=== PATIENT | female | born 1985 | race Hispanic/Latino ===

== ENCOUNTER 2017-12-22 00:07 | Inpatient (IN) | payer BC, OTHER, SELFPAY ==
[2017-12-22] MEDS ORDERED: Ringers Lactate 1,000 ML IV PRN (00:27)
[2017-12-22] MEDS ORDERED: MIDAZOLAM HCL 2 MG/2 ML INJ IV PRN (00:27)
[2017-12-22] MEDS ORDERED: CARBOPROST TROME 250 MCG/ML IM PRN (00:27)
[2017-12-22] MEDS ORDERED: BUTORPHANOL 1 MG/ML INJ IV PRN (00:27)
[2017-12-22] MEDS ORDERED: PROMETHAZINE 25 MG/ML VIAL IM PRN (00:27)
[2017-12-22] MEDS ORDERED: METHYLERGONOVINE 0.2MG/ML AMP IM PRN (00:27)
[2017-12-22] MEDS ORDERED: MEPERIDINE HCL 25 MG/0.5 ML IV PRN (00:27)
[2017-12-22 00:43] LABS: RPR Titer ND
[2017-12-22 00:49] LABS: Absolute Lymphocytes (CBC) 2.7 K/uL (0.7-4.9); Absolute Monocytes 0.7 K/uL (0.1-1.3); Absolute Neutrophil 4.9 K/uL (1.8-8.0); Basophils % 0.3 % (0-1.3); Eosinophils % 0.9 % (0-4.4); Hematocrit 38.7 % (36.0-45.0); Lymphocytes % 32.3 % (15.3-44.8); MCV 90.2 fL (80-100); Monocytes % 7.8 % (3.3-12.3); RBC Red Blood Cell Count 4.29 M/uL (3.86-4.86)
[2017-12-22] MEDS ORDERED: METHYLERGONOVINE 0.2MG/ML AMP IM ONE (00:50)
[2017-12-22] MEDS ORDERED: OXYTOCIN/LR 0 UNIT/0 ML BAG IV ONE (00:50)
[2017-12-22] MEDS ORDERED: MEPERIDINE HCL 25 MG/0.5 ML ONE (00:50)
[2017-12-22] MEDS ORDERED: LIDOCAINE 2% INJ, 20 mL 20 ML ONE (00:50)
[2017-12-22] MEDS ORDERED: OXYTOCIN/LR 20 UNIT/1,000 ML BAG IV ONE (00:51)
[2017-12-22] MEDS ORDERED: Rho(D) IG (HUMAN) 300 MCG SYR IM PRN (00:54)
[2017-12-22] MEDS ORDERED: Oxycodone HCl/Acetaminophen 1 TAB TAB PO PRN ×4 (00:54→05:07)
[2017-12-22] MEDS ORDERED: DOCUSATE NA/SENNA CONC 1 TAB PO PRN ×2 (00:54→05:07)
[2017-12-22] MEDS ORDERED: ACETAMINOPHEN 500 MG TAB PO PRN ×2 (00:54→05:07)
[2017-12-22] MEDS ORDERED: BISACODYL 10 MG RECTAL SUPP RECT PRN ×2 (00:54→05:07)
[2017-12-22] MEDS ORDERED: DIPHENHYDRAMINE 25 MG TAB/CAP PO PRN ×2 (00:54→05:07)
[2017-12-22] MEDS ORDERED: Ringers Lactate 1,000 ML IV SCH (01:00)
[2017-12-22] MEDS ORDERED: OXYTOCIN/LR 20 UNIT/1,000 ML BAG IV SCH ×3 (01:00→06:00)
--- NOTE | 2017-12-22 01:26 | PREOPHP ---
Date of Admission: 12/22/2017 History Of Present Illness: A 32-year-old, 3, para 2, 38-39 weeks, patient omer Millan wed in ET in [place] without apparent complications. Says she went to labor and delivery to be assessed in [place], they send her home. She came straight here. She is noted to be 8 cm and bearing down w hen she came in, and went rapidly to complete. Family History: Noncontributory. Allergies: NO ALLERGIES. THE PATIENT GIVES A HISTORY. SHE IS RH NEGATIVE AND SHE HAD HER RHOGAM DURING THE . BETA S TREP IS NOT AVAILABLE. Physical Examination: Unremarkable. Vital signs: Are all stable. Heart and lungs: Grossly clear. Plan: She has a term size uterus and is complete and on the perineum. GLORIA/ROLDAN Voice ID: [id number]
--- NOTE | 2017-12-22 01:26 | OP ---
Surgeon: Miguel Wolf MD A 32-year-old 3, para 2, followed by Dr. Mckeon, antepartum, was assessed in Labor and Delive ry in [place], sent home, came straight here to 8 cm, with urge to push when she came in, went to co mplete rapidly. Spontaneous rupture of membranes showed clear fluid. Second stage of 5 minutes or l ess. Spontaneous vaginal delivery of an estimated 8 pounds plus male . Apgars 9 and 9 for a s mall first degree laceration on the left labia minora, infiltrated with the local anesthetic and runn ing locked stitch with 4 stitches. A small first degree at the posterior fourchette. The running lo ck stitches there are also after the local infiltration. The patient was also given IV medications a fter delivery of the baby, clamping the cord. Cash delivery of placenta, which was inspected and noted to be intact and normal. Blood loss of 300 cc or less. Tolerated all procedures well. Final Diagnoses: 1.Term intrauterine . 2.Vaginal delivery. GLORIA/ROLDAN Voice ID: [id number] Report ID: [id number]
[2017-12-22 01:41] VITALS: BMI 30.9
[2017-12-22] MEDS ORDERED: IBUPROFEN 200 MG TAB PO PRN (05:07)
--- NOTE | 2017-12-22 11:49 | PN ---
Since delivery, the patient is doing quite well. Lochia is normal. We went over today a RhoGAM, gabriela baptiste the patient will get since the baby is Rh positive, also one of her Tdap, which apparently the pat ient has not had nor has been discussed. I discuss this for her and evolved all family members 21 ye ars or more. We will observe the patient today, send her home tomorrow. Full instructions given. Galina be will go over it again tomorrow. GLORIA/ROLDAN Voice ID: [id number] Report ID: [id number]
[2017-12-22] MEDS: IBUPROFEN 200 MG TAB PO PRN ×2 (12:28→20:10)
[2017-12-22] MEDS ORDERED: IBUPROFEN 200 MG TAB PO ONE (20:26)
[2017-12-22 23:11] LABS: RPR (Rapid Plasma Reagin) NON-REACT (NON-REACT)
--- NOTE | 2017-12-23 08:27 | DS ---
A 32-year-old multiparous female, patient of Dr. Mckeon seen in [place] for labor, dismiss came over here was 8 cm on admission. Subsequently delivered an 8 pounds 9 ounce male infant, Apgars 9 and 9. Small first-degree lacerations on either labia minora, sutured with 2-0 chromic running locked stit ches. Schultze delivery of the placenta. A routine blood loss of 300 cc. Approximately post afebrile, ambulating. Voiding lochia is normal. She is Rh negative and received RhoGAM. Tdap admi nistration suggested. The patient is dismissed. She will call back to Dr. Mckeon's office for [facility] er instructions to report any temperature elevation of 100 degrees or greater, severe pain, heavy ble eding, or any other type of abnormalities. Dismissed with tramadol for analgesia. Final Diagnoses: 1.Term intrauterine 38 weeks 6 days. 2.Vaginal delivery. RhoGAM administered, Tdap offered. GLORIA/ROLDAN Voice ID: [id number] Report ID: [id number]
[2017-12-23] MEDS ORDERED: Tdap (Diph,Pertuss(Acell),Tet Vac) 0.5 ML SYR IMVAC ONE (08:48)
[2017-12-23 09:10] VITALS: BP 115/70; TEMP 97
[2017-12-24 20:29] LABS: HBsAG Nonreactive (Nonreactive)
== END 2017-12-23 10:10 | disposition home or self-care (01) | DRG 775 ==
LOC: L&D 00:07 → 2ND-WC 00:17
PROVIDERS: ADMIT Specialist; ATTEND Specialist
PROC: 3E0234Z Introduction of Serum, Toxoid and Vaccine into Muscle, Percutaneous Approach (ICD-10-PCS; principal; 2017-12-22)
PROC: 10E0XZZ Delivery of Products of Conception, External Approach (ICD-10-PCS; 2017-12-22)
PROC: 0HQ9XZZ Repair Perineum Skin, External Approach (ICD-10-PCS; 2017-12-22)
DX: O70.0 First degree perineal laceration during delivery (principal); Z3A.38 38 weeks gestation of pregnancy; Z37.0 Single live birth; Z23 Encounter for immunization
CPT/HCPCS: 36415; 85025; 85461; 86592; 86850; 86870; 86901; 87340; 90715; J0595; J2175; J2210; J2590; J2790

== ENCOUNTER 2018-01-03 00:18 | Emergency (ER) | payer BC, SELFPAY ==
--- NOTE | 2018-01-03 01:10 | ER ---
Nurse's Notes [facility] Name: Jo Ann Cuadra Age: 32 yrs Sex: Female : 1985 Arrival Date: 01/03/2018 Time: 00:22 Bed 13 Private MD: Diagnosis: Nipple discharge;Cracked nipple associated with Presentation: 01/03 00:31 Presenting complaint: Patient states: that she has been breast feeding x 2 weeks since her child was born and now her nipples are cut and bleeding. More on the left. She is now is so much pain she is having trouble breast feeding. Transition of care: patient was not received from another setting of care. Onset of symptoms was January 02, 2018. Care prior to arrival: None. 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 - Social history:: Smoking status: Patient/guardian denies using tobacco. Screenin:20 Abuse screen: Denies threats or abuse. Nutritional screening: No deficits noted. kb1 Tuberculosis screening: No symptoms or risk factors identified. Fall Risk None identified. Assessment: 01:20 General: Appears in no apparent distress. Behavior is calm, cooperative. Pain: Denies kb1 pain. Neuro: Level of Consciousness is awake, alert, obeys commands. Cardiovascular: Patient's skin is warm and dry. Cardiovascular: No deficits noted. Respiratory: Airway is patent. Vital Signs: 00:33 BP 118 / 78; Pulse 67; Resp 18; Temp 97.0(TE); Pulse Ox 100% on R/A; Height 5 ft. 4 in. fc (162.56 cm) (R); Pain 10/10; 00:39 Weight 75.3 kg; fc 00:39 Body Mass Index 28.49 (75.30 kg, 162.56 cm) ED Course: 00:22 Patient arrived in ED. al2 00:33 Triage completed. 00:34 Arm band placed on Patient placed in an exam room, on a stretcher. 00:38 Braden Deng MD is Attending Physician. tw4 00:58 Lyric López, RN is Primary Nurse. kb1 01:20 Patient has correct armband on for positive identification. Bed in low position. Call kb1 light in reach. 01:27 No provider procedures requiring assistance completed. Patient did not have IV access aa1 during this emergency room visit. Administered Medications: No medications were administered Outcome: 01:10 Discharge ordered by . tw4 01:26 Discharged to home ambulatory. aa1 01:26 Condition: good 01:26 Discharge instructions given to patient, Instructed on discharge instructions, follow up and referral plans. Demonstrated understanding of instructions, follow-up care. 01:34 Patient left the ED. kb1 Signatures: Madai Stout RN RN aa1 Marcy Bautista, RN RN Andie, Braden Prasad MD MD tw4 Lyric López, RN RN kb1 Corrections: (The following items were deleted from the chart) 01:33 01:31 General: Appears in no apparent distress. Behavior is calm, cooperative, kb1 kb1 :33 01:31 Neuro: Level of Consciousness is awake, alert, obeys commands, kb1 kb1 :33 01:31 Cardiovascular: No deficits noted. kb1 kb1 :33 01:31 Respiratory: Airway is patent kb1 kb1 :33 01:31 Cardiovascular: Patient's skin is warm and dry. kb1 kb1 :33 01:31 Pain: Denies pain. kb1 kb1
--- NOTE | 2018-01-03 01:35 | EDPHYS ---
Physician Documentation [facility] Name: Jo Ann Cuadra Age: 32 yrs Sex: Female : 1985 Arrival Date: 01/03/2018 Time: 00:22 Bed 13 Private MD: ED Physician Braden Deng HPI: 01/03 01:20 This 32 yrs old Female presents to ER via Ambulatory with complaints of tw4 Drainage From Breast. 01:20 the patient presents with a swollen area of the right nipple and left nipple. Onset: tw4 The symptoms/episode began/occurred 2 week(s) ago. Possible cause(s): . Associated signs and symptoms: The patient has no apparent associated signs or symptoms. Modifying factors: the symptoms are alleviated by nothing, the symptoms are aggravated by touching. Severity of symptoms: At their worst the symptoms were mild, in the emergency department the symptoms are unchanged. The patient has not experienced similar symptoms in the past. 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 - Social history:: Smoking status: Patient/guardian denies using tobacco. ROS: 01:20 Constitutional: Negative for fever, chills, and weight loss. tw4 01:20 : 01:20 Skin: Positive for abrasion(s), ulceration, Negative for abscesses, avulsion, burn, cellulitis, diaphoresis, discoloration. Exam: 01:23 Constitutional: This is a well developed, well nourished patient who is awake, alert, tw4 and in no acute distress. Head/Face: Normocephalic, atraumatic. 01:23 Chest/axilla: Breasts: nipple discharge, that is mild of the right breast, of the left breast, that is bloody, tenderness, of the right breast, of the left breast, nipple abrasions and superficial laceration bilaterally. Vital Signs: 00:33 BP 118 / 78; Pulse 67; Resp 18; Temp 97.0(TE); Pulse Ox 100% on R/A; Height 5 ft. 4 in. fc (162.56 cm) (R); Pain 10; 00:39 Weight 75.3 kg; fc 00:39 Body Mass Index 28.49 (75.30 kg, 162.56 cm) MDM: 00:38 Patient medically screened. tw4 01:23 Differential diagnosis: abscess, cellulitis. Data reviewed: vital signs, nurses notes. tw4 Counseling: I had a detailed discussion with the patient and/or guardian regarding: the historical points, exam findings, and any diagnostic results supporting the discharge/admit diagnosis. Special discussion: I discussed with the patient/guardian in detail that at this point there is no indication for admission to the hospital. It is understood, however, that if the symptoms persist or worsen the patient needs to return immediately for re-evaluation. Administered Medications: No medications were administered Disposition: 01/03/18 01:10 Discharged to Home. Impression: Nipple discharge, Cracked nipple associated with . - Condition is Stable. - Discharge Instructions: Challenges and Solutions, Breast Tenderness. - Medication Reconciliation Form, Thank You Letter, Antibiotic Education, Prescription Opioid Use form. - Follow up: Private Physician; When: As needed; Reason: Recheck today's complaints, Continuance of care, Re-evaluation by your physician. Signatures: Marcy Bautista, RN RN Braden Deng MD MD tw4 Lyric López RN RN kb1
[2018-01-03 01:46] VITALS: BP 118/78; TEMP 97; O2SAT 100
== END 2018-01-03 01:34 | disposition home or self-care (01) ==
LOC: ER 00:18
DX: O92.13 Cracked nipple associated with lactation (principal)
CPT/HCPCS: 99281